=== PATIENT | female | born 1965 ===

== ENCOUNTER 2025-03-30 13:07 | Inpatient (IN) | payer OTHER ==
[~2025-03-30] VITALS: Ht 172.7 cm; Wt 70.5 kg
[2025-03-30] MEDS ORDERED: LAMO100 PO (14:16)
[2025-03-30] MEDS ORDERED: TRAZ150T57 PO (14:18)
[2025-03-30] MEDS ORDERED: ESTRADIOL10 MCG PO (14:19)
[2025-03-30] MEDS ORDERED: DOCU100 PO (14:20)
[2025-03-30] MEDS ORDERED: Fleet Enema132 ML PR (14:20)
[2025-03-30] MEDS ORDERED: OMEP20ER PO (14:21)
[2025-03-30] MEDS ORDERED: ZOCOR20 MG PO (14:21)
[2025-03-30] MEDS ORDERED: ACET500 PO (14:22)
[2025-03-30] MEDS ORDERED: ASPI81CH PO (14:22)
[2025-03-30] MEDS ORDERED: ONDA4ODT MM (14:25)
--- NOTE | 2025-03-30 14:33 | NUR ---
PATIENT HAS AN INVOLUNTARY HOLD FROM [facility]. March IS DAY ONE. PRE- COMMITMENT RESIDENT ASSOCIATE HI PEACOCK CALLED AND LEFT HER DIRECT CELL [phone]. fAX [phone] [facility] MAIN LINE [phone].
[2025-03-30] MEDS ORDERED: Polyethylene Glycol 3350 17 gm PO PRN (14:35)
[2025-03-30] MEDS ORDERED: DiphenhydrAMINE HCl 50 MG/ML 1ML Vial IM PRN (14:40)
[2025-03-30] MEDS ORDERED: Ondansetron 4 MG SoluTab MM PRN (14:40)
[2025-03-30] MEDS ORDERED: Aluminum Hydroxide 320MG/5ML 473 ML PO PRN (14:45)
[2025-03-30] MEDS ORDERED: Haloperidol Lactate Inj. 5 MG/ML Injection IM PRN (14:45)
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
[2025-03-30 19:58] VITALS: BP 143/80
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
--- NOTE | 2025-03-31 04:15 | NUR ---
Assumed care of this patient at 2400. Patient woke once at 0300 but declined anything to assist her getting back to sleep. Patient continues sleeping now. Please see previous SHIFT SUMMARY. Will continue every 15 minute observations for safety and comfort.
[2025-03-31 06:52] LABS: CHOL/HDL RATIO 1.8; Cholesterol 143 mg/dL (50-200); HDL Cholesterol 81 mg/dL (>39); LDL/HDL RATIO 0.5; Low Density Lipoprotein Chol 40 mg/dL (0-110); Triglycerides 111 mg/dL (30-160); Very Low Density Lipoprot Chol 22 mg/dL (6-32)
[2025-03-31] MEDS ORDERED: Multivitamins 1 Tab PO SCH (09:00)
[2025-03-31 09:15] VITALS: BP 131/87
--- NOTE | 2025-03-31 11:04 | NUR ---
Patient requested to speak with this advertising copywriter. She states that she is worried about so many things, feeling overwhelmed. She states that at home her house. is cluttered and she wishes she had someone to help her sort through things. She states that she doesn't know what to do here, between groups. She states that she believes the Trazodone is what caused her SI to turn into the attempt that she just made on her life. She feels like when she is on an antidepressant, her mood worsens and she feels emotions less. She states she does better when only a stablaizer is prescriebd. Questions she asked this advertising copywriter have been explained and I asked that we just take one day at a time. Patient is aware that she can come to staff when feeling confused to request help and have questions answered.
--- NOTE | 2025-03-31 12:33 | NUR ---
NURSE NOTE PT SLIGHTLY ANXIOUS THIS SHIFT. SHE WAS YANA FUNKTARIL FOR ANXIETY. SHE STATES SHE FEELS IT WORKS THE BEST FOR HER ANXIETY. SHE IS COOPERATIVE WITH ALL MEDICATIONS, AND IS PARTICIPATING IN THE GROUPS AND IN THE MILIEU. SHE EXPRESSED SOME ANXIETY ABOUT WHAT SHE WAS EXPECTED TO DO DURING HER ADMISSION AND MIS RN SPOKE WITH HER AND SHE SLIGHTLY CALMED. SHE DENIES HI/SI/AVH. NO OTHER ACUTE EVENTS AT THIS TIME.
--- NOTE | 2025-03-31 15:43 | NUR ---
THE PRE COMMITMENT SPEEDBOAT DRIVER LAURA CALLED TODAY. SHE WAS ABLE TO SPEAK WITH THE PATIENT REGARDING HOW SHE IS DOING HERE, AND IF SHE WOULD LIKE TO TAKE A SLOT IN THE [facility] TREATMENT TEAM WHEN SHE DISCHARGES FROM [facility]. PATIENT WILLINGLY SPOKE WITH LAURA SHE WAS WORRIED THIS MORNING ABOUT HOW THINGS WOULD GO ONCE SHE DISCHARGES. PATIENT IS DOING A GREAT JOB, LETTING STAFF KNOW IF SHE NEEDS ANYTHING. PARTICIPATING AND TAKING MEDICATIONS PRESCRIBED.
--- NOTE | 2025-03-31 17:02 | NUR ---
SHIFT SUMMARY: ASSUMED CARE OF PT AT 1400 TODAY. PT HAS PARTICIPATED IN GROUP AND SNACK AND HAS BEEN COOPERATIVE IN THE MILIEU. VERY PLEASANT LADY. SHE HAS HAD SOME ANXIETY AND REQUESTED A VISTARIL WITH TYLENOL FOR A HEADACHE. AN HOUR LATER SHE REQUESTED SOMETHING FOR NAUSEA, SHE WAS GIVEN ZOFRAN. SHE HAS USED THE PHONE FOR CONTACT TO FAMILY/FRIENDS, SHE HAS HAD CONTINUOUS Q15 MIN VISUAL SAFETY CHECKS
--- NOTE | 2025-03-31 18:20 | NUR ---
Patient reported that she uses a fleets enema everyother day at home. An order was placed for a fleets emema for tomorrow. Patient should take softeners and if another fleet emema is needed, we may have to order another. 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 I clarified that this wasn't a uteran prolapse and she states it is not, that it is indeed a rectal prolapse. she states she needs a new ring placed. she did not report any pain but definently has difficulty with BM.
[2025-03-31 19:14] VITALS: BP 134/83
--- NOTE | 2025-03-31 23:40 | NUR ---
MID SHIFT SUMMARY Patient very anxious and tearful at beginning of shift. She did say she is not feeling suicidal, she doesn't want to deal with her anxieties and is scared her medication regimen will not give her the peace she needs. she would like to go to sleep and not wake up. The vistaril she had asked for was not due for 2.5 more hours, so this RN gave her a zyprexa to help with her anxiety. This did help, along with her evening medications, and she was able to go to sleep. Then she did wake up around 2230 and took the Vistaril and has been sleeping since. Will continue close monitoring every 15 minutes for comfort and safety.
--- NOTE | 2025-04-01 04:13 | NUR ---
SHIFT SUMMARY ASSUMED CARE 2345, PATIENT CONTINUES TO BE SLEEPING RESP EVEN AND UNLABORED. CONTINUE TO MONITOR Q15MIN
[2025-04-01 09:12] VITALS: BP 124/82
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
--- NOTE | 2025-04-01 17:20 | NUR ---
PT REPORTED ANXIETY OF 7/10w AND HAD A MASS SCORE OF 5. SHE WAS GIVEN OLANZIPINE 10MG. PT IS WATCHING A MOVIE WITH PEERS.
[2025-04-01 19:04] VITALS: BP 131/89
--- NOTE | 2025-04-02 04:26 | NUR ---
SHIFT SUMMARY: PT A/O X4. DENIES TO BE SI,HI, AND AVH. STILL FEELS SOME WHAT DEPRESSED AND LOST ON HOW TO HANDLE THE FUTURE. PT DOES FEEL GREATFUL TO BE HERE AND APPREICIATES THE HELP SHE IS GETTING HERE. SAID SHE HAD ANXIETY EARILER IN THE DAY BUT IS OK NOW. PT HAD DIARRHEA TODAY SO DID NOT NEED THE FLEETS ENEMA THAT WAS ORDERED FOR TONIGHT. UP IN THE MILIEU THIS EVEVNING AND HAD SNACK AND WENT TO BED AROUND 2200. HAS BEEN SLEEPING WELL THROUGH THE NIGHT. WILL CONTINUE TO MONITOR.
[2025-04-02 07:52] VITALS: BP 133/91
--- NOTE | 2025-04-02 11:26 | NUR ---
SHIFT ASSESSMENT: PT DENIED SI, HI AND AVH. PT REPORTED ANXIETY 3/10w AND BACK/HIP PAIN 5/10w. SHE WAS GIVEN TYLENOL 650MG WHICH SHE REPORTED WAS EFFECTIVE. SHE DESCRIBED HER MOOD CALM, HER AFFECT WAS CONGRUENT TO STATED MOOD, PT HAS PARTICIPATED IN GROUPS AND IN THE PT MILIEU. SHE IS PRESENTLY IN A GROUP.
[2025-04-02 19:24] VITALS: BP 144/90
--- NOTE | 2025-04-03 05:15 | NUR ---
SHIFT SUMMARY: PT A/OX4. PLEASANT AND COOPERTIVE. DENIES SI, HI AND AVH. PT'S MOOD IS JOYFUL AND EXCITABLE. PT HAS DECIDED THAT WHEN SHE GETS HOME SHE WILL LEARN TO GET OUT OF THE HOUSE AND NOT SECLUDE LIKE SHE HAS BEEN DOING. PT WANTS TO LIVE. PT WANTS TO CONTINUE WITH THERAPY AND MEDICATION ON AN OUT PATIENT BASES, BUT WANTS TO MAKE SURE THAT SHE IS ON THE RIGHT MEDICATION TO HELP HER. LET PT KNOW TO COMMUNICATE WHITH HER DOCTOR TO KEEP A HEALTHY REGIMINE FOR HERSELF. PT COMES OUT OF HER ROOM AND PARTICIPATES IN THE GROUP [place]OMA ND SNACK TIME. MED COMPLIANT. PT HAS SLEPT THROUGH THE NIGHT. WILL CONTINUE TO MONITOR.
[2025-04-03 08:52] VITALS: BP 136/84
--- NOTE | 2025-04-03 16:51 | NUR ---
SHIFT SUMMARY PT A/O X4; PLEASANT AND COOPERATIVE WITH CARE. SHE DENIES SI, HI, AVTH. WHEN ASKED HOW SHE IS DOING THE PT APPEARS TEARFUL, BUT SAYS THAT SHE IS DOING MUCH BETTER. SHE INTERACTS WITH HER PEERS AND ENGAGES IN UNIT ACTIVITIES. NO NEW COMPLAINTS OR NEEDS THIS SHIFT. SHE CONTINUES TO BE MONITORED VIA Q15 ROUNDING FOR SAFETY AND WELLNESS.
[2025-04-03 20:01] VITALS: BP 140/80
--- NOTE | 2025-04-04 05:57 | NUR ---
SHIFT SUMMARY Pt is A&O, calm, cooperative, eye contact is good. Pt s mood is more elevated, calm, affect is euthymic, full, and pleasant. Pt denies SI, HI, and hallucinations. Pt endorsed lower back pain 4/10w and requested PRN acetaminophen with her evening medications, which was effective. Pt was active on the milieu during the evening, watching TV and pleasantly interacting with staff and peers. At approximately 2100 pt approached comic book writer and requested PRN melatonin for sleep. At about 2355 pt approached the NS and requested PRN hydroxyzine. Staff continues to monitor q15m for safety and wellness.
[2025-04-04 09:07] VITALS: BP 124/77
--- NOTE | 2025-04-04 10:09 | NUR ---
DISCHARGE REQUEST- PATIENT IS ANXIOUS ABOUT BEING ABLE TO PICK MEDICATIONS UP WHEN SHE LEAVES DUE TO [facility] HER HOME. DR. SEQUEIRA WAS HERE THIS AM, DISCUSSING THIS AND STATES THAT HE WOULD BE WILLING TO SEND A FEW DAYS WORTH OF MEDICATIONS TO [facility] IN [place], PHOTOGRAPHIC EQUIPMENT MECHANIC OR HAVE STAFF PHOTOGRAPHIC EQUIPMENT MECHANIC THE MEDS THE DAY OF DISCHARGE, SO PATIENT HAS SOME ON HAND. PATIENT STATES THAT THE SCRIPT CAN BE SENT TO [facility] ON [address] SHE WILL EVENTUALLY HAVE ALL MEDS FILLED BY [facility], BUT IT MIGHT TAKE A FEW DAYS FOR THE ORDERS TO PROCESS WITH THE [facility]. THE PATIENT PROVIDED CONTACT INFO FOR HER NURSE AT THE ID (Robin) SCOTTY WORKS WITH DR. BRITT- [phone]. HER
--- NOTE | 2025-04-04 12:21 | NUR ---
safety plan: Safety plan is complete, except for any follow up appointments that may have been scheduled. The plan is in the front cover of the patient binder. She still needs her copy.
--- NOTE | 2025-04-04 16:47 | NUR ---
Shift Summary- 04/04/25 Please also see previous notes. THis shift the patient was present on the units with peers. She had complaints of low back pain, chronic, from previously wearing a service belt for many years. She denies SI, HI, and all hallucinations. Patient is mentally preparing to discharge tomorrow, and states she has a mess to clean up, including cleaning her carpets. Patient needs to contact [facility] pre commitment tomorrow and start to prepare her next mental health visits on the outside with a community provider. The patient facial skin, which was red with petichei upon admission, is now clearing up. A Small red area is left on her cheeks. She is thankful for the clearing of her skin and the decrease in negative thoughts and SI.
[2025-04-04 19:29] VITALS: BP 131/83
--- NOTE | 2025-04-05 05:16 | NUR ---
SHIFT SUMMARY Pt is A&O, calm, cooperative, eye contact is good. Pt s mood is doing well, affect is constricted. Pt denies SI, HI, and hallucinations. Pt endorsed lower back pain 5/10w and requested PRN acetaminophen with her evening medications. Pt stated that she is anxious about discharge tomorrow. Pt has been trying to prioritize tasks that she needs to complete after she leaves the U. Oil Burner Installer explained that pt needs to contact [facility] case management director to arrange follow-up treatment and she stated that she would call tomorrow. Pt was active on the milieu during the evening, watching TV and pleasantly interacting with staff and peers. Staff continues to monitor q15m for safety and wellness.
[2025-04-05 08:54] VITALS: BP 121/90
[2025-04-05] MEDS ORDERED: HYDPAM50 PO (12:29)
[2025-04-05] MEDS ORDERED: OLAN5 PO (12:29)
--- NOTE | 2025-04-05 14:27 | NUR ---
DISCHARGE NOTE: PT RIDE ARRIVED AND PT DISCHARGED HOME. STATED UNDERSTANDING OF DISCHARGE INSTRUCTIONS AND DENIED QUESTIONS. PT BELONGINGS RETURNED BY DB PIERCE. PT AMBULATED OUT OF UNIT WITH DISCHARGE INSTRUCTIONS AND BELONGINGS IN HAND. PT DENIED SI, HI AND AVH.
== END 2025-04-05 14:20 | disposition home or self-care (01) | DRG 885 ==
LOC: BHU 13:07
PROVIDERS: ADMIT Psychiatry & Neurology Psychiatry
DX: F31.30 Bipolar disorder, current episode depressed, mild or moderate severity, unspecified (principal); R45.851 Suicidal ideations; E78.00 Pure hypercholesterolemia, unspecified; Z79.899 Other long term (current) drug therapy; Z91.030 Bee allergy status; Z91.038 Other insect allergy status; Z88.8 Allergy status to other drugs, medicaments and biological substances
CPT/HCPCS: 36415; 80061; 83036; A9270